=== PATIENT | female | born 1990 | race African-American/Black ===

== ENCOUNTER 2020-04-29 17:40 | Emergency (ER) | payer OTHER ==
[~2020-04-29] VITALS: Ht 167.6 cm; Wt 65.8 kg
[2020-04-29] MEDS ORDERED: BACTRIM DS TAB1 EACH PO (18:21)
[2020-04-29] MEDS ORDERED: TRIAMCINOLONE A15 G1 TP (18:25)
[2020-04-29 19:12] VITALS: BP 134/78
== END 2020-04-29 19:41 | disposition home or self-care (01) ==
LOC: M.ERS 17:40
DX: S80.861A Insect bite (nonvenomous), right lower leg, initial encounter (principal); L08.9 Local infection of the skin and subcutaneous tissue, unspecified; L25.9 Unspecified contact dermatitis, unspecified cause; W57.XXXA Bitten or stung by nonvenomous insect and other nonvenomous arthropods, initial encounter; Y93.89 Activity, other specified; Y92.89 Other specified places as the place of occurrence of the external cause; Y99.8 Other external cause status